=== PATIENT | female | born 1960 | race Caucasian/White ===

== ENCOUNTER 2016-06-29 13:49 | Emergency (ER) | payer OTHER ==
[~2016-06-29] VITALS: Ht 170.2 cm; Wt 83.9 kg
[~2016-06-29 13:49] MED LIST: BACTRIM,SEPT1 TABLET PO; BENTYL10 MG PO; BENTYL20 MG PO; CELEXA40 MG PO; KEFLEX500 MG PO; LEXAPRO20 MG PO; MACROBID100 MG PO; PREDNISONE1 MG PO; PREDNISONE50 MG PO; PYRIDIUM100 MG PO; SYNTHROID25 MCG PO; TESSALON200 MG PO; TRAMADOL HCL50 MG PO; TYLENOL WITH C1 EACH PO; ZOCOR20 MG PO; ZOFRAN4 MG PO; ZOLOFT100 MG PO; ZOLOFT50 MG PO; ZOLPIDEM TART12.5 MG PO
[2016-06-29 16:30] LABS: ADD MIUA? YES; BILIRUBIN NEGATIVE; BLOOD MODERATE; COLOR YELLOW ((YELLOW)); GLUCOSE (STRIP) NEGATIVE; KETONES NEGATIVE; LEUKOCYTES LARGE; NITRITE NEGATIVE; PROTEIN (STRIP) 30; SPECIFIC GRAVITY 1.021 (1.000-1.030); UROBILINOGEN 0.2 MG/DL (0.2-1.0)
[2016-06-29 16:41] LABS: BACTERIA RARE /HPF; BUDDING YEAST RARE; EPITHELIAL CELLS RARE /HPF; MUCUS 1+ /LPF; UCUL ADDED? YES; WHITE BLOOD CELLS TNTC /HPF (0-5); WHITE BLOOD CELLS CLUMP FEW /HPF (0-5)
[2016-06-29] MEDS ORDERED: PYRIDIUM200 MG PO (16:47)
[2016-06-29] MEDS ORDERED: BACTRIM,SEPT1 TABLET PO (16:47)
[2016-06-29 17:09] VITALS: BP 107/69
== END 2016-06-29 17:10 | disposition home or self-care (01) ==
LOC: EME 13:49
DX: N39.0 Urinary tract infection, site not specified (principal); E78.5 Hyperlipidemia, unspecified; I10 Essential (primary) hypertension; E03.9 Hypothyroidism, unspecified
CPT/HCPCS: 81003; 87077; 87086; 87186; 99281; 99283

== ENCOUNTER 2017-01-18 18:05 | Emergency (ER) | payer OTHER ==
[~2017-01-18] VITALS: Ht 170.2 cm; Wt 86.2 kg
[~2017-01-18 18:05] MED LIST changes: +PYRIDIUM200 MG PO
[2017-01-18 18:33] LABS: ADD MIUA? YES; BILIRUBIN NEGATIVE; BLOOD MODERATE; COLOR AMBER ((YELLOW)); GLUCOSE (STRIP) NEGATIVE; KETONES NEGATIVE; LEUKOCYTES SMALL; NITRITE POSITIVE; PROTEIN (STRIP) 30; SPECIFIC GRAVITY 1.028 (1.000-1.030)
[2017-01-18 18:59] LABS: BACTERIA RARE /HPF; EPITHELIAL CELLS RARE /HPF; MUCUS 2+ /LPF; RED BLOOD CELLS 30-40 /HPF (0-5); UCUL ADDED? YES; WHITE BLOOD CELLS TNTC /HPF (0-5); WHITE BLOOD CELLS CLUMP FEW /HPF (0-5)
[2017-01-18] MEDS ORDERED: KEFLEX500 MG PO (19:04)
[2017-01-18 19:15] VITALS: BP 124/63
== END 2017-01-18 19:17 | disposition home or self-care (01) ==
LOC: EME 18:05
DX: N39.0 Urinary tract infection, site not specified (principal); E03.9 Hypothyroidism, unspecified
CPT/HCPCS: 81003; 87086; 99281; 99284

== ENCOUNTER 2017-12-12 10:08 | Emergency (ER) | payer OTHER ==
[~2017-12-12] VITALS: Ht 170.2 cm; Wt 83.2 kg
[2017-12-12 11:44] VITALS: BP 119/75
== END 2017-12-12 11:46 | disposition home or self-care (01) ==
LOC: EME 10:08
DX: G89.29 Other chronic pain (principal); M79.1 Myalgia; M25.561 Pain in right knee; M25.562 Pain in left knee; M54.2 Cervicalgia; M54.9 Dorsalgia, unspecified; I10 Essential (primary) hypertension; E78.5 Hyperlipidemia, unspecified; E03.9 Hypothyroidism, unspecified; F32.9 Major depressive disorder, single episode, unspecified; Z90.49 Acquired absence of other specified parts of digestive tract; Z88.6 Allergy status to analgesic agent
CPT/HCPCS: 72040; 72070; 99281; 99285